=== PATIENT | female | born 1980 | race Two or more races ===

== ENCOUNTER 2019-02-03 18:29 | Emergency (ER) | payer OTHER ==
[~2019-02-03] VITALS: Ht 157.5 cm; Wt 67.0 kg
[2019-02-03 21:31] VITALS: BP 112/70
== END 2019-02-03 21:53 | disposition home or self-care (01) ==
LOC: ED 21:51
DX: M94.0 Chondrocostal junction syndrome [Tietze] (principal); R07.89 Other chest pain; R06.02 Shortness of breath
CPT/HCPCS: 36415; 71046; 80048; 82040; 84484; 85025; 85379; 93005; 99284